=== PATIENT | female | born 1935 | race Caucasian/White ===

== ENCOUNTER 2017-02-21 10:01 | Day surgery (SDC) | payer OTHER ==
[~2017-02-21 10:01] MED LIST: ASPI81 PO; SYNT112T PO; TOPR25TA2 PO
[2017-02-21] MEDS ORDERED: POVIDONE IODINE 5% (ANTISEPSIS KIT) 4 APPLICATIONS EACH NARE SCH (11:30)
[2017-02-21] MEDS ORDERED: NS 1000 ML IV SCH (11:30)
[2017-02-21] MEDS ORDERED: CHLORHEXIDINE GLUCONATE 2 % 1 PACK (2 CLOTHS) TOPICAL SCH (11:30)
[2017-02-21] MEDS ORDERED: NO Heparin, Lovenox, Coumadin at least 12 hours prior to procedure. PRN (11:30)
[2017-02-21] MEDS ORDERED: ceFAZolin 2 GM PREMIX 50 ML IV SCH (11:30)
[2017-02-21] MEDS ORDERED: MUPIROCIN 2% OINT 1 APPLIC/GM SYR NASAL SCH (11:30)
[2017-02-21] MEDS ORDERED: Hold AM Insulin & AM Hypoglycemic medications in diabetic patients PRN (11:30)
[2017-02-21] MEDS ORDERED: LEVO-168 PO (12:09)
[2017-02-21] MEDS ORDERED: XARE20TA PO (12:09)
[2017-02-21] MEDS ORDERED: METF500T PO (12:09)
[2017-02-21] MEDS ORDERED: COEN400C (12:09)
[2017-02-21] MEDS ORDERED: PRAD150C PO (12:09)
[2017-02-21] MEDS ORDERED: DILT-60 PO (12:09)
[2017-02-21] MEDS ORDERED: METO25TA3 PO (12:09)
[2017-02-21] MEDS ORDERED: MIDAZOLAM HCL 5 MG/5 ML VIAL ONE (12:23)
--- NOTE | 2017-02-21 13:07 | MA ---
cc: BRISEIDA COLEMAN MD DATE 02/21/2017 PREPROCEDURE DIAGNOSIS Atrial fibrillation POSTPROCEDURE DIAGNOSIS Successful loop recorder insertion. PROCEDURE PERFORMED 1. 15 minutes moderate IV sedation. 2. Loop recorder insertion. DESCRIPTION OF PROCEDURE The patient was brought to the DOC unit in the postabsorptive state. After informed consent was obtained, 2 mg of Versed and 25 mcg of Fentanyl was given for moderate IV sedation. Next, a [employer] loop recorder was inserted subcutaneously in the left chest. The patient tolerated the procedure well without any apparent complications. Tachybrady pause and atrial fibrillation detection was enabled. Initial R-wave was 0.27 mV. The serial number [id number]. MD YOSI Jensen/PATY /12:45 PM /12:59 PM
== END 2017-02-21 13:40 | disposition home or self-care (01) ==
LOC: HDOC 10:01 → HDIC 10:01 → HDOC 13:40
PROVIDERS: ATTEND Nuclear Medicine Nuclear Cardiology
DX: I48.91 Unspecified atrial fibrillation (principal); I70.0 Atherosclerosis of aorta; I25.10 Atherosclerotic heart disease of native coronary artery without angina pectoris; I10 Essential (primary) hypertension
CPT/HCPCS: 33282; 99152; C1764; J0690; J2250; J3010